=== PATIENT | female | born 1945 | race Caucasian/White ===

== ENCOUNTER 2017-04-15 10:27 | Outpatient (CLI) | payer MEDICARE, OTHER ==
--- NOTE | 2017-04-15 11:54 | XRAY Report ---
LEFT HIP AND PELVIS: 04/15/2017 CLINICAL INDICATION: Left hip pain. FINDINGS: Frontal view of the hips and pelvis and frogleg lateral view of the left hip demonstrate m oderate osteoarthritis. There is no evidence of acute fracture. No radiopaque foreign body is seen in the soft tissues. IMPRESSION: MODERATE OSTEOARTHRITIS. JOB #: [id number] EXT JOB #:[id number]
== END 2017-04-15 10:28 | disposition home or self-care (01) ==
LOC: DI 10:27
PROVIDERS: ATTEND Family Medicine
DX: M16.12 Unilateral primary osteoarthritis, left hip (principal)

== ENCOUNTER 2017-08-03 07:20 | Outpatient (CLI) | payer MEDICARE, OTHER ==
[2017-08-03 07:35] LABS: CREATININE 0.7 mg/dL (0.4-1.0)
[2017-08-03] MEDS ORDERED: GADOBUTROL 7.5 MMOL/7.5 ML VIAL ONE (07:44)
[2017-08-03] MEDS ORDERED: GADOBUTROL 7.5 MMOL/7.5 ML VIAL IVP ONE (08:17)
--- NOTE | 2017-08-03 15:38 | MRI Report ---
EXAM: RIGHT FOREFOOT MRI WITHOUT AND WITH CONTRAST EXAM DATE: 08/03/2017 08:26 AM. CLINICAL HISTORY: Right foot intermetatarsal neuroma. Lump at the superior aspect between the first a nd second toes. COMPARISON: Radiographs 03/16/2016. TECHNIQUE: Multiplanar, multisequence T1-weighted and fluid-sensitive sequences of the forefoot befor e and after administration of intravenous contrast. IV contrast: 7.5 cc Gadavist. Other: None. FINDINGS: Bones and Articular Surfaces: Cartilage loss with subchondral bone changes and marginal osteophytes i s moderate to severe at the first interphalangeal joint, moderate at the first MTP joint. No acute fr acture or destructive bone lesion identified. No erosive change. Musculotendinous Structures: Atrophy and fatty replacement involving the intrinsic muscles of the dis selwyn forefoot. Visualized flexor and extensor tendons appear intact. Miscellaneous Soft Tissues: There is some prominence of subcutaneous fat at the dorsal aspect between the base of the first and second toe. No masses are identified. No evidence of neuroma. Trace amount of fluid at the first and third intermetatarsal bursae. IMPRESSION: 1. No soft tissue mass identified. 2. Osteoarthritis at the first interphalangeal joint and first MTP joint. [facility] MUSCULOSKELETAL RADIOLOGY SECTION Referring Provider Line: [phone] SITE ID: [id number]
== END 2017-08-03 07:21 | disposition home or self-care (01) ==
LOC: LAB 07:20
PROVIDERS: ATTEND Family Medicine
DX: M19.071 Primary osteoarthritis, right ankle and foot (principal); G57.61 Lesion of plantar nerve, right lower limb; M25.571 Pain in right ankle and joints of right foot; G60.3 Idiopathic progressive neuropathy; Z79.899 Other long term (current) drug therapy
CPT/HCPCS: 36415; 73720; 82565; A9585

== ENCOUNTER 2018-06-01 13:00 | Outpatient (CLI) | payer MEDICARE, OTHER ==
--- NOTE | 2018-06-02 09:33 | Mammography Report ---
Reason: ANNUAL MAMMOGRAM Procedure Date: 06/01/2018 Accession Number: [id number] / [id number] Procedure: MARIBEL - Screening Mammo w/Ted CPT Code: FULL RESULT: EXAM: Screening Mammo w/Ted DATE: 06/01/2018 1:42 PM CLINICAL HISTORY: Routine screening TECHNIQUE: Bilateral CC and MLO views were obtained. COMPARISON: 06/29/2013, 10/27/2009 and 12/28/2007 FINDINGS: The breast tissue is heterogeneously dense. There has been no significant interval change. No suspicious masses, clustered microcalcifications, or regions of architectural distortion are identified. IMPRESSION: Benign findings RECOMMENDATION: Routine annual screening unless otherwise clinically indicated. BIRADS CATEGORY 2: Benign findings STANDARD QUALIFYING STATEMENTS: 1. This examination was not reviewed with the aid of Computer-Aided Detection (CAD). 2. A negative or benign imaging report should not delay biopsy if clinically suspicious findings are present. Consider surgical consultation if warrented. More than 5% of cancers are not identified by imaging. 3. Dense breasts may obscure an underlying neoplasm. 4. This examination was reviewed with the aid of 3D breast imaging (tomosynthesis).
== END 2018-06-01 13:01 | disposition home or self-care (01) ==
LOC: DI 13:00
PROVIDERS: ATTEND Family Medicine
DX: Z12.31 Encounter for screening mammogram for malignant neoplasm of breast (principal)
CPT/HCPCS: 77063; 77067

== ENCOUNTER 2018-09-13 20:06 | Emergency (ER) | payer MEDICARE, OTHER ==
[2018-09-13 20:38] LABS: BASOPHILS % (AUTO) 0.7 %; EOSINOPHILS # (AUTO) 0.1 10^3/uL (0.0-0.7); HGB - HEMOGLOBIN 12.5 g/dL (12.0-16.0); LYMPHOCYTES % (AUTO) 15.6 %; MEAN CORPUSCULAR HEMOGLOBIN 27.4 pg (27.0-31.0); MEAN PLATELET VOLUME 7.6 fL (7.9-10.8); MONOCYTES # (AUTO) 0.5 10^3/uL (0.0-1.0); MONOCYTES % (AUTO) 6.9 %; NEUTROPHILS % (AUTO) 74.8 %; PLT - PLATELET COUNT 219 10^3/uL (130-450); RED BLOOD COUNT 4.57 10^6/uL (4.20-5.40); RED CELL DISTRIBUTION WIDTH 14.7 % (12.0-15.0); WHITE BLOOD COUNT 6.7 x10^3/uL (4.8-10.8)
[2018-09-13] MEDS ORDERED: ONDANSETRON 4 MG/2 ML VIAL IVP STA (20:40)
[2018-09-13] MEDS ORDERED: SODIUM CHLORIDE 0.9% 1,000 ML IV ONE (20:40)
[2018-09-13 20:49] LABS: ALBUMIN 4.3 g/dL (3.2-5.5); ALBUMIN/GLOBULIN RATIO 1.5 (1.0-2.2); BILIRUBIN,TOTAL 0.6 mg/dL (0.2-1.0); CALCIUM 9.3 mg/dL (8.5-10.3); CREATININE 0.8 mg/dL (0.4-1.0); TOTAL PROTEIN 7.1 g/dL (6.7-8.2)
[2018-09-13 21:27] LABS: BILIRUBIN,URINE NEGATIVE (NEGATIVE); CLARITY,URINE CLEAR (CLEAR); GLUCOSE, URINE (UA) NEGATIVE (NEGATIVE); KETONES,URINE (UA) 15 mg/dL (NEGATIVE); LEUKOCYTE ESTERASE, URINE NEGATIVE (NEGATIVE); NITRITE,URINE NEGATIVE (NEGATIVE); OCCULT BLOOD,URINE NEGATIVE (NEGATIVE); PH,URINE 8.5 PH (5.0-7.5); PROTEIN,URINE TRACE mg/dL (NEGATIVE); UROBILINOGEN,URINE 0.2 (NORMAL) E.U./dL (NORMAL)
--- NOTE | 2018-09-13 21:30 | ED Physician Documentation ---
PD HPI NVD - Stated complaint Stated Complaint: VOMITING/DIZZINESS - Chief complaint Chief Complaint: Neuro - History obtained from History obtained from: Patient, Family - History of Present Illness Timing - onset: Today Timing - duration: Hours (4) Timing - details: Abrupt onset Pain level max: 4 Pain level now: 3 Associated symptoms: Abdominal pain (Crampy), Dizzy (Lightheaded with standing) Contributing factors: Bad food (And a 2-day-old tunafish sandwich with mayonnaise). No: Sick contact, Travel, Recent antibiotics, Alcohol use, Anticoagulated, Diabetes Improved by: Vomiting Worsened by: Eating Recently seen: Not recently seen Review of Systems Ten Systems: 10 systems reviewed and negative Constitutional: denies: Fever, Chills Nose: denies: Rhinorrhea / runny nose, Congestion Throat: denies: Sore throat Cardiac: denies: Chest pain / pressure Respiratory: denies: Dyspnea, Cough GI: reports: Nausea, Vomiting. 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 HEENT: Cataracts - Present Medications Home Medications: Ambulatory Orders Medication Instructions Recorded Confirmed Amitriptyline HCl 10 mg PO DAILY 09/13/18 09/13/18 Atorvastatin Calcium 20 mg PO DAILY 09/13/18 09/13/18 Furosemide [Lasix] 40 mg PO DAILY 09/13/18 09/13/18 Gabapentin 600 mg PO QID 09/13/18 09/13/18 Levothyroxine [Synthroid] 100 mcg PO QDAC 09/13/18 09/13/18 Metformin HCl [Metformin ER 500 mg PO BID 09/13/18 09/13/18 Osmotic] Ondansetron Odt [Zofran] 4 mg TL Q6H PRN #10 tablet 09/13/18 - Allergies Allergies/Adverse Reactions: Allergies Allergy/AdvReac Type Severity Reaction Status Date / Time No Known Drug Allergies Allergy Verified 09/13/18 20:15 - Social History Does the pt smoke?: No Smoking Status: Never smoker Does the pt drink ETOH?: No Does the pt have substance abuse?: No - Immunizations Immunizations are current?: No Immunizations: TDAP >10years/unknown - POLST Patient has POLST: No PD ED PE NORMAL - Vitals Vital signs reviewed: Yes - General General: Alert and oriented X 3, No acute distress, Well developed/nourished - HEENT HEENT: PERRL, Moist mucous membranes - Neck Neck: Supple, no meningeal sign - Cardiac Cardiac: RRR, Strong equal pulses - Respiratory Respiratory: No respiratory distress, Clear bilaterally - Abdomen Abdomen: Soft, Non tender, Non distended - Derm Derm: Warm and dry - Extremities Extremities: No edema - Neuro Neuro: Alert and oriented X 3 - Psych Psych: Normal mood, Normal affect Results - Vitals Vitals: Vital Signs - 24 hr 09/13/18 09/13/18 09/13/18 20:11 20:28 21:17 Temperature 36.3 C L Heart Rate 59 L 53 L 53 L Respiratory 26 H 22 17 Rate Blood Pressure 153/76 H 140/68 H 146/86 H O2 Saturation 100 100 100 09/13/18 09/13/18 21:41 21:53 Temperature Heart Rate 60 52 L Respiratory 17 18 Rate Blood Pressure 130/69 130/69 O2 Saturation 99 98 Oxygen O2 Source Room air - Labs Labs: Laboratory Tests 09/13/18 09/13/18 09/13/18 20:22 20:31 20:31 WBC 6.7 RBC 4.57 Hgb 12.5 Hct 38.0 MCV 83.0 MCH 27.4 MCHC 33.0 RDW 14.7 Plt Count 219 MPV 7.6 L Neut # (Auto) 5.0 Lymph # (Auto) 1.0 L [place] # (Auto) 0.5 Eos # (Auto) 0.1 Baso # (Auto) 0.0 Absolute Nucleated RBC 0.00 Nucleated RBC % 0.1 Sodium 138 Potassium 3.4 L Chloride 102 Carbon Dioxide 21 Anion Gap 15.0 H BUN 15 Creatinine 0.8 Estimated GFR (MDRD) 71 L Glucose 174 H POC Whole Bld Glucose 166 H Calcium 9.3 Total Bilirubin 0.6 AST 31 ALT 27 Alkaline Phosphatase 62 Total Protein 7.1 Albumin 4.3 Globulin 2.8 Albumin/Globulin Ratio 1.5 Lipase 34 Urine Color Urine Clarity Urine pH Ur Specific [place] Urine Protein Urine Glucose (UA) Urine Ketones Urine Occult Blood Urine Nitrite Urine Bilirubin Urine Urobilinogen Ur Leukocyte Esterase Ur Microscopic Review Urine Culture Comments 09/13/18 21:12 WBC RBC Hgb Hct MCV MCH MCHC RDW Plt Count MPV Neut # (Auto) Lymph # (Auto) [place] # (Auto) Eos # (Auto) Baso # (Auto) Absolute Nucleated RBC Nucleated RBC % Sodium Potassium Chloride Carbon Dioxide Anion Gap BUN Creatinine Estimated GFR (MDRD) Glucose POC Whole Bld Glucose Calcium Total Bilirubin AST ALT Alkaline Phosphatase Total Protein Albumin Globulin Albumin/Globulin Ratio Lipase Urine Color YELLOW Urine Clarity CLEAR Urine pH 8.5 H Ur Specific [place] 1.010 Urine Protein TRACE Urine Glucose (UA) NEGATIVE Urine Ketones 15 H Urine Occult Blood NEGATIVE Urine Nitrite NEGATIVE Urine Bilirubin NEGATIVE Urine Urobilinogen 0.2 (NORMAL) Ur Leukocyte Esterase NEGATIVE Ur Microscopic Review NOT INDICATED Urine Culture Comments NOT INDICATED PD MEDICAL DECISION MAKING - ED course Complexity details: considered differential, d/w patient ED course: Patient with likely food poisoning. Feels much better after IV fluids and Zofran. Tolerating p.o. without difficulty. Will prescribe Zofran for home and continue supportive care. No evidence of tumor or stroke. No vertiginous symptoms. No focal neurological deficits. Does occasionally have mild bradycardia but is asymptomatic with this. She is unclear if this has happened to her before not. Patient counseled regarding signs and symptoms for which I believe and urgent re-evaluation would be necessary. Patient with good understanding of and agreement to plan and is comfortable going home at this time This document was made in part using voice recognition software. While efforts are made to proofread this document, sound alike and grammatical errors may occur. Departure - Departure Disposition: 01 Home, Self Care Clinical Impression: Bradycardia Food poisoning Qualifiers: Encounter type: initial encounter Injury intent: accidental or unintentional Qualified Code(s): T62.91XA - Toxic effect of unspecified noxious substance eate n as food, accidental (unintentional), initial encounter Condition: Good Instructions: ED Gastroenteritis Vs Food Poison Follow-Up: Adam Boswell MD [Primary Care Provider] - Within 3 Days Prescriptions: Ondansetron Odt [Zofran] 4 mg TL Q6H PRN #10 tablet PRN Reason: Nausea / Vomiting Comments: Drink plenty of fluids and rest. Return if you worsen. Follow-up with your doctor for further care.
[2018-09-13] MEDS ORDERED: ONDANSETRON ODT 4 MG Prepack 2 TL PRN (22:15)
[2018-09-13 22:35] VITALS: BP 136/76
== END 2018-09-13 22:35 | disposition home or self-care (01) ==
LOC: ED 20:06
DX: T61.771A Other fish poisoning, accidental (unintentional), initial encounter (principal); R11.2 Nausea with vomiting, unspecified; R10.9 Unspecified abdominal pain; R42 Dizziness and giddiness; R00.1 Bradycardia, unspecified; E11.40 Type 2 diabetes mellitus with diabetic neuropathy, unspecified; Z79.84 Long term (current) use of oral hypoglycemic drugs
CPT/HCPCS: 36415; 80053; 81001; 81003; 83690; 85025; 87086; 96361; 96374; 99284

== ENCOUNTER 2019-01-19 09:57 | Outpatient (CLI) | payer MEDICARE, OTHER ==
--- NOTE | 2019-01-21 02:53 | XRAY Report ---
Reason: SPRAIN OF OTH PARTS OF LUMBAR SPINE AND PELVIS, IN Procedure Date: 01/19/2019 Accession Number: [id number] / [id number] Procedure: XR - Lumbar Spine 2 View CPT Code: FULL RESULT: EXAM: LUMBOSACRAL SPINE RADIOGRAPHY EXAM DATE: 01/19/2019 10:20 AM. CLINICAL HISTORY: Left low back pain. COMPARISONS: None. TECHNIQUE: 3 views. FINDINGS: Alignment: Unremarkable. Bones: Five [id number] lumbar vertebral bodies are present. No fractures or bone lesions. Disks: Moderate to severe degenerative disk disease throughout. Facets: Degenerative joint disease from L3-S1. Sacroiliac Joints: Unremarkable. Soft Tissues: Grossly unremarkable. IMPRESSION: 1. No acute fracture or dislocation seen. 2. Multilevel degenerative disk disease and degenerative joint disease. [facility]
== END 2019-01-19 09:58 | disposition home or self-care (01) ==
LOC: DI 09:57
PROVIDERS: ATTEND Family Medicine
DX: M51.36 Other intervertebral disc degeneration, lumbar region (principal); M47.817 Spondylosis without myelopathy or radiculopathy, lumbosacral region; M47.816 Spondylosis without myelopathy or radiculopathy, lumbar region
CPT/HCPCS: 72100

== ENCOUNTER 2019-01-26 09:34 | Outpatient (CLI) | payer MEDICARE, OTHER ==
--- NOTE | 2019-01-26 15:38 | Ultrasound Report ---
Reason: ABDOMEN PAIN Procedure Date: 01/26/2019 Accession Number: [id number] / [id number] Procedure: US - Abdomen Complete CPT Code: FULL RESULT: EXAM: ABDOMEN ULTRASOUND EXAM DATE: 01/26/2019 10:47 AM. CLINICAL HISTORY: Abdomen pain. COMPARISON: ABDOMEN ULTRASOUND 12/30/2011. TECHNIQUE: Real-time scanning was performed with static images obtained. FINDINGS: Liver: Similar pattern of diffuse hepatic increased echogenicity and mild heterogenicity consistent with fatty infiltration, versus hepatocellular disease. No mass demonstrated. Mildly enlarged, 18.7 cm, previously reported as 17 cm. Main portal vein flow: Hepatopetal. Gallbladder: Normal. No stones, wall thickening, or sonographic Nicole's sign. Biliary System: Common bile duct measures 4 mm. No intrahepatic or extrahepatic ductal dilatation. Pancreas: Visualized portion is unremarkable. Kidneys: Right: 11.6 cm longitudinally. 1.2 cm upper pole cortical simple cyst. No hydronephrosis or definite stones. 3 x 4 x 3 mm lower pole round cortical echogenic lesion without definite shadowing. Left: 11.2 cm longitudinally. Normal. No contour-deforming mass, stones, or hydronephrosis. Spleen: 9.9 cm. Normal in size and echotexture. Aorta and Inferior Vena Cava: Unremarkable apart from aortic atherosclerotic plaque. Other: No free fluid. IMPRESSION: 1. Mild hepatic enlargement with redemonstration of a pattern of diffuse hepatic increased echogenicity and mild heterogenicity consistent with diffuse fatty infiltration, versus hepatocellular disease. No focal hepatic abnormality. 2. No cholelithiasis or evidence of cholecystitis. 3. Small simple right renal cyst. 4. 4 mm left renal cortical hyperechoic lesion. Incidental homogenous hyperechoic renal lesions measuring 1.0 cm or less are almost always clinically insignificant, commonly small angiomyolipomas. Monica Ponce, Ann Mann A. M., Ann Bui
== END 2019-01-26 09:35 | disposition home or self-care (01) ==
LOC: DI 09:34
PROVIDERS: ATTEND Family Medicine
DX: R16.0 Hepatomegaly, not elsewhere classified (principal); N28.1 Cyst of kidney, acquired; N28.9 Disorder of kidney and ureter, unspecified
CPT/HCPCS: 76700

== ENCOUNTER 2019-04-27 21:03 | Emergency (ER) | payer MEDICARE, OTHER ==
[2019-04-27 21:10] VITALS: BP 145/85
[2019-04-27] MEDS ORDERED: AMOX/CLAV 875 MG/125 MG TABLET PO STA (21:23)
--- NOTE | 2019-04-27 21:27 | ED Physician Documentation ---
PD HPI WOUND RECHECK - Stated complaint Stated Complaint: TOE PX - Chief complaint Chief Complaint: Wound - Histroy obtained from History obtained from: Patient - History of Present Illness Location: Right Lower Extremity (Couple of days of redness of the right great toe. No recollected injury. 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 HEENT: Cataracts - Present Medications Home Medications: Ambulatory Orders Medication Instructions Recorded Confirmed Amitriptyline HCl 10 mg PO DAILY 09/13/18 09/13/18 Atorvastatin Calcium 20 mg PO DAILY 09/13/18 09/13/18 Furosemide [Lasix] 40 mg PO DAILY 09/13/18 09/13/18 Gabapentin 600 mg PO QID 09/13/18 09/13/18 Levothyroxine [Synthroid] 100 mcg PO QDAC 09/13/18 09/13/18 Metformin HCl [Metformin ER 500 mg PO BID 09/13/18 09/13/18 Osmotic] Ondansetron Odt [Zofran] 4 mg TL Q6H PRN #10 tablet 09/13/18 Amox/Clav 875/125 [Augmentin] 1 each PO Q12H #20 tablet 04/27/19 - Allergies Allergies/Adverse Reactions: Allergies Allergy/AdvReac Type Severity Reaction Status Date / Time No Known Drug Allergies Allergy Verified 04/27/19 21:09 - Social History Does the pt smoke?: No Smoking Status: Never smoker Does the pt drink ETOH?: No Does the pt have substance abuse?: No - Immunizations Immunizations are current?: No Immunizations: TDAP >10years/unknown - POLST Patient has POLST: No PD ED PE NORMAL - Vitals Vital signs reviewed: Yes - General General: Alert and oriented X 3, No acute distress - Extremities Extremities: Other (She is cellulitis of the right great toe, on the plantar surface there is sort of a tracking very shallow abscess with a little bit of purulent material. It was sharply debrided during exam and a culture was obtained. The patient tolerated this very well.) - Neuro Neuro: Alert and oriented X 3, Normal speech Results - Vitals Vitals: Vital Signs - 24 hr 04/27/19 21:07 Temperature 36.4 C L Heart Rate 69 Respiratory 16 Rate Blood Pressure 145/85 H O2 Saturation 98 Oxygen O2 Source Room air Departure - Departure Disposition: 01 Home, Self Care Clinical Impression: Cellulitis of toe of right foot Condition: Good Record reviewed to determine appropriate education?: Yes Instructions: Cellulitis Dc Prescriptions: Amox/Clav 875/125 [Augmentin] 1 each PO Q12H #20 tablet Comments: We are performing a wound culture, the results should be done in 48-72 hours. If antibiotic change is necessary we will call you. Return if worse in the meantime, especially if you develop increased pain, fevers, cannot keep down the medication. Otherwise follow-up with your physician in approximately 2-3 days.
== END 2019-04-27 21:34 | disposition home or self-care (01) ==
LOC: ED 21:03
DX: L03.031 Cellulitis of right toe (principal); L02.611 Cutaneous abscess of right foot; E11.40 Type 2 diabetes mellitus with diabetic neuropathy, unspecified; Z79.84 Long term (current) use of oral hypoglycemic drugs
CPT/HCPCS: 87070; 87077; 87181; 87205; 99283; A9270

== ENCOUNTER 2019-05-02 14:01 | Outpatient (CLI) | payer MEDICARE, OTHER ==
--- NOTE | 2019-05-03 09:05 | XRAY Report ---
Reason: UNSPECIFIED SPRAIN OF RIGHT GREAT TOE, SEQUELA Procedure Date: 05/02/2019 Accession Number: [id number] / [id number] Procedure: XR - Toe(s) RT CPT Code: Final Report FULL RESULT: EXAM: RIGHT TOE RADIOGRAPHY 3 VIEWS EXAM DATE: 05/02/2019. CLINICAL HISTORY: Right great toe sprain. Laceration. COMPARISON: Right great toe done 03/16/2016. TECHNIQUE: AP, oblique and lateral views. FINDINGS: Bones: No acute fracture. Old partially healed fracture of the proximal lateral corner of the distal phalanx is unchanged. Joints: No dislocation. Mild narrowing of the interphalangeal joint and first metatarsal-phalangeal joint. Soft Tissues: Diffuse swelling of the toe. Faint curvilinear density projected over the distal medial aspect of the toe is probably artifact from overlying bandage or clothing. IMPRESSION: Soft tissue swelling of the great toe. No soft tissue gas or definite foreign body evident. Old fracture of the proximal lateral corner of the distal phalanx, and mild degenerative joint disease of the interphalangeal and first metatarsal-phalangeal joint, appear unchanged from 03/16/2016. [facility]
== END 2019-05-02 14:02 | disposition home or self-care (01) ==
LOC: DI 14:01
PROVIDERS: ATTEND Family Medicine
DX: M19.071 Primary osteoarthritis, right ankle and foot (principal); S93.501A Unspecified sprain of right great toe, initial encounter
CPT/HCPCS: 73660

== ENCOUNTER 2019-08-06 08:01 | Outpatient (CLI) | payer MEDICARE, OTHER ==
--- NOTE | 2019-08-07 16:41 | Mammography Report ---
Reason: ROUTINE MAMMO Procedure Date: 08/06/2019 Accession Number: [id number] / [id number] Procedure: MARIBEL - Screening Mammo w/Ted CPT Code: Final Report FULL RESULT: EXAM: Screening Mammo w/Ted DATE: 08/06/2019 8:45 AM CLINICAL HISTORY: Routine screening TECHNIQUE: (B) - Bilateral CC and MLO views were obtained. COMPARISON: 06/01/2018, 06/29/2013, 10/27/2009 PARENCHYMAL PATTERN: (D) - The breasts demonstrate heterogeneously dense fibroglandular parenchyma bilaterally. FINDINGS: No significant interval change. There are no suspicious masses, calcifications, or areas of distortion. IMPRESSION: Negative examination. BI-RADS category 1. RECOMMENDATION: (ANNUAL) - Recommend routine annual screening mammography. BI-RADS CATEGORY: (1) - Negative. STANDARD QUALIFYING STATEMENTS: 1. This examination was not reviewed with the aid of Computer-Aided Detection (CAD). 2. A negative or benign imaging report should not preclude biopsy if clinically suspicious findings are present. 3. Dense breasts may obscure an underlying neoplasm. 4. This examination was reviewed with the aid of 3D breast imaging (tomosynthesis).
== END 2019-08-06 08:02 | disposition home or self-care (01) ==
LOC: DI 08:01
DX: Z12.31 Encounter for screening mammogram for malignant neoplasm of breast (principal)
CPT/HCPCS: 77063; 77067

== ENCOUNTER 2020-08-19 10:05 | Outpatient (CLI) | payer MEDICARE, OTHER ==
--- NOTE | 2020-08-19 13:12 | XRAY Report ---
PROCEDURE: Hip w/Pelvis 2-3V RT INDICATIONS: RT HIP PAIN TECHNIQUE: AP pelvis with frog-leg lateral view of the right hip. COMPARISON: Left hip radiographs 04/15/2017 FINDINGS: Bones: No acute fractures or dislocations. Pelvic ring appears intact. No suspicious bony lesions. Moderate degenerative changes are seen in the hips bilaterally with joint space narrowing and jose nal osteophyte formation, minimally progressed when compared to the prior radiographs from 04/15/2017. Degenerative changes are seen in the included portions of the lower lumbar spine. Soft tissues: The visualized bowel gas pattern is normal. No suspicious soft tissue calcifications. IMPRESSION: No acute osseous abnormality. Moderate symmetric bilateral hip osteoarthrosis. Reviewed by: Johnathan Jones MD on 08/19/2020 1:10 PM PDT Approved by: Johnathan Jones MD on 08/19/2020 1:10 PM PDT Station ID: [id number]
== END 2020-08-19 10:06 | disposition home or self-care (01) ==
LOC: DI 10:05
PROVIDERS: ATTEND Family Medicine
DX: M16.0 Bilateral primary osteoarthritis of hip (principal)

== ENCOUNTER 2020-12-29 19:35 | Outpatient (CLI) | payer MEDICARE, OTHER | END 2020-12-29 19:36 | disposition home or self-care (01) | LOC: COV 19:35 | PROVIDERS: ATTEND Family Medicine | DX: R05 Cough (principal); R53.83 Other fatigue; R19.7 Diarrhea, unspecified; Z20.822 Contact with and (suspected) exposure to COVID-19 ==

== ENCOUNTER 2023-12-28 09:06 | Outpatient (CLI) | payer MEDICARE, OTHER ==
--- NOTE | 2023-12-29 08:01 | Mammography Report ---
BILATERAL DIGITAL SCREENING MAMMOGRAM 3D/2D WITH EXAGGERATED CC: 12/28/2023 CLINICAL: Routine screening. Comparison is made to exams dated: 08/06/2019 mammogram and 06/01/2018 mammogram - [facility]. Both breasts are heterogeneously dense, which may obscure small masses (category c / 51-75% glandular tissue). No significant masses, calcifications, or other findings are seen in either breast. There has been no significant interval change. IMPRESSION: NEGATIVE There is no mammographic evidence of malignancy. A 1 year screening mammogram is recommended. Based on the Tyrer Cuzick model (a risk assessment model) the patient's lifetime risk is 4.7% and her 10 year risk is 0.0%. According to the ACR, ACS, and NCCN guidelines, an annual breast MRI exam tammy g with mammogram is recommended if the patient's lifetime risk is 20% or greater. This exam was interpreted at Station ID: [id number]. NOTE: For mammograms, a report in lay terms will be sent to the patient. Approximately 15% of breast malignancies will not be visualized mammographically. In the management of a palpable breast mass, a negative mammogram must not discourage biopsy of a clinically suspicious lesion. Electronically Signed By: Madeline starks/piper:12/28/2023 17:13:32 letter sent: No_Letter ACR BI-RADS Category 1: Negative 3341F PARENCHYMAL PATTERN: (D) - The breast(s) demonstrate(s) heterogeneously dense fibroglandular dena iqbal. BI-RADS CATEGORY: (1) - 1 RECOMMENDATION: (ANNUAL) - Recommend routine annual screening mammography. [id number] 1 year screening LATERALITY: (B)
== END 2023-12-28 09:07 | disposition home or self-care (01) ==
LOC: DI 09:06
PROVIDERS: ATTEND Internal Medicine
DX: Z12.31 Encounter for screening mammogram for malignant neoplasm of breast (principal); R92.333 Mammographic heterogeneous density, bilateral breasts